=== PATIENT | male | born 1985 | race Caucasian/White ===

== ENCOUNTER 2017-10-07 16:54 | Emergency (ER) | payer BC ==
--- NOTE | 2017-10-07 17:34 | EDPHYS ---
Physician Documentation [facility] Name: Temo Chow Age: 32 yrs Sex: Male : 1985 Arrival Date: 10/07/2017 Time: 16:57 Bed 20 Private MD: ED Physician Enrique He HPI: 10/07 17:32 This 32 yrs old Male presents to ER via Ambulatory with complaints of Skin pm1 Problem. 17:32 The patient presents with an abscess of the left arm and left leg. Description: raised. pm1 Onset: The symptoms/episode began/occurred 3 day(s) ago. Possible cause(s): unknown. Associated signs and symptoms: Pertinent negatives: discharge, drainage, fever. Modifying factors: the symptoms are alleviated by nothing, the symptoms are aggravated by touching. Severity of symptoms: in the emergency department the symptoms are unchanged. The patient has not experienced similar symptoms in the past. The patient has not recently seen a physician. patient with recent fishing trips. Patient has psoriasis hx and a few lesions to extremities. Patient with tender areas of swelling that he believes might be abscesses. Historical: - Allergies: 17:04 Bactrim; aj - Home Meds: 17:04 escitalopram oxalate oral oral [Active]; Bupropion Oral [Active]; aj - PMHx: 17:04 Anxiety; aj - PSHx: 17:04 None; aj - Immunization history:: Adult Immunizations up to date. - Social history:: Smoking status: Patient uses tobacco products, smokes one-half pack cigarettes per day. - Ebola Screening: : Patient negative for fever greater than or equal to 101.5 degrees Fahrenheit, and additional compatible Ebola Virus Disease symptoms Patient denies exposure to infectious person Patient denies travel to an Ebola-affected area in the 21 days before illness onset No symptoms or risks identified at this time. ROS: 17:32 Constitutional: Negative for fever, chills, and weight loss, Eyes: Negative for injury, pm1 pain, redness, and discharge, ENT: Negative for injury, pain, and discharge, Neck: Negative for injury, pain, and swelling, Cardiovascular: Negative for chest pain, palpitations, and edema, Respiratory: Negative for shortness of breath, cough, wheezing, and pleuritic chest pain, Abdomen/GI: Negative for abdominal pain, nausea, vomiting, diarrhea, and constipation, Back: Negative for injury and pain, MS/Extremity: Negative for injury and deformity. 17:32 Skin: Positive for abscess, Negative for cellulitis. Exam: 17:32 Constitutional: This is a well developed, well nourished patient who is awake, alert, pm1 and in no acute distress. Head/Face: Normocephalic, atraumatic. Neck: Trachea midline, no thyromegaly or masses palpated, and no cervical lymphadenopathy. Supple, full range of motion without nuchal rigidity, or vertebral point tenderness. No Meningismus. Chest/axilla: Normal chest wall appearance and motion. Nontender with no deformity. No lesions are appreciated. Cardiovascular: Regular rate and rhythm with a normal S1 and S2. No gallops, murmurs, or rubs. Normal PMI, no JVD. No pulse deficits. Respiratory: Lungs have equal breath sounds bilaterally, clear to auscultation and percussion. No rales, rhonchi or wheezes noted. No increased work of breathing, no retractions or nasal flaring. Abdomen/GI: Soft, non-tender, with normal bowel sounds. No distension or tympany. No guarding or rebound. No evidence of tenderness throughout. Back: No spinal tenderness. No costovertebral tenderness. Full range of motion. 17:32 Skin: Appearance: normal except for affected area, abscess, that is small, approximately 1 cm(s), no drainage, fluctuance or surrounding cellulitis. Vital Signs: 17:06 BP 132 / 87; Pulse 87; Resp 20; Temp 98.0; Pulse Ox 99% on R/A; Weight 104.33 kg; aj Height 5 ft. 8 in. (172.72 cm) (R); 17:06 Body Mass Index 34.97 (104.33 kg, 172.72 cm) aj MDM: 17:06 Patient medically screened. pm1 17:32 Data reviewed: vital signs. Data interpreted: Pulse oximetry: on room air is 99 %. pm1 Interpretation: normal. Counseling: I had a detailed discussion with the patient and/or guardian regarding: the historical points, exam findings, and any diagnostic results supporting the discharge/admit diagnosis, the need for outpatient follow up, to return to the emergency department if symptoms worsen or persist or if there are any questions or concerns that arise at home. Administered Medications: 17:46 Drug: Tetanus-Diphtheria Toxoid Adult 0.5 ml {Tile Layer Drainage: [employer]. Exp: em 11/30/2018. Lot #: [id number]. } Route: IM; Site: right deltoid; 17:47 Follow up: Response: Medication administered at discharge. em Disposition: 18:11 Co-signature as Attending Physician, Enrique He MD I agree with the assessment and kdr plan of care. Disposition: 10/07/17 17:33 Discharged to Home. Impression: Cutaneous abscess of left lower limb, Cutaneous abscess of left upper limb. - Condition is Stable. - Discharge Instructions: Skin Abscess. - Prescriptions for Doxycycline Hyclate 100 mg Oral Tablet - take 1 tablet by ORAL route every 12 hours; 20 tablet. - Medication Reconciliation Form, Thank You Letter, Antibiotic Education form. - Follow up: Emergency Department; When: As needed; Reason: Worsening of condition. Follow up: Private Physician; When: 2 - 3 days; Reason: Recheck today's complaints, Continuance of care, Re-evaluation by your physician. - Problem is new. - Symptoms have improved. Signatures: Cece Cazares RN RN aj Rittger, Kevin, MD MD kdr Hiram Damon, SMALL STOCK FACER SMALL STOCK FACER em Steve Galdamez, SVP MONETIZATION SVP MONETIZATION pm1 Corrections: (The following items were deleted from the chart) 17:06 17:04 PMHx: eczema; jan montoya 17:50 17:33 10/07/2017 17:33 Discharged to Home. Impression: Cutaneous abscess of left lower em limb; Cutaneous abscess of left upper limb. Condition is Stable. Forms are Medication Reconciliation Form, Thank You Letter, Antibiotic Education, Prescription Opioid Use. Follow up: Emergency Department; When: As needed; Reason: Worsening of condition. Follow up: Private Physician; When: 2 - 3 days; Reason: Recheck today's complaints, Continuance of care, Re-evaluation by your physician. Problem is new. Symptoms have improved. pm1
--- NOTE | 2017-10-07 17:34 | ER ---
Nurse's Notes [facility] Name: Temo Chow Age: 32 yrs Sex: Male : 1985 Arrival Date: 10/07/2017 Time: 16:57 Bed 20 Private MD: Diagnosis: Cutaneous abscess of left lower limb;Cutaneous abscess of left upper limb Presentation: 10/07 17:02 Presenting complaint: Patient states: Reports possible staph infection to left calf. aj Also would like eczema to left foot looked at. Transition of care: patient was not received from another setting of care. Onset of symptoms was October 07, 2017. Risk Assessment: Do you want to hurt yourself or someone else? Patient reports no desire to harm self or others. Initial Sepsis Screen: Does the patient meet any 2 criteria? No. Patient's initial sepsis screen is negative. Does the patient have a suspected source of infection? No. Patient's initial sepsis screen is negative. Care prior to arrival: None. 17:02 Method Of Arrival: Ambulatory 17:02 Acuity: CAL 4 aj Triage Assessment: 17:04 General: Appears in no apparent distress. comfortable, Behavior is calm, cooperative, aj appropriate for age. Pain: Denies pain. Neuro: Level of Consciousness is awake, alert, obeys commands, Oriented to person, place, time, situation, Appropriate for age. Respiratory: Airway is patent Respiratory effort is even, unlabored, Respiratory pattern is regular, symmetrical. Derm: Skin is intact, is healthy with good turgor, Skin is pink, warm \T\ dry. normal, plaques noted to left foot and left elbow. Historical: - Allergies: 17:04 Bactrim; aj - Home Meds: 17:04 escitalopram oxalate oral oral [Active]; Bupropion Oral [Active]; aj - PMHx: 17:04 Anxiety; aj - PSHx: 17:04 None; aj - Immunization history:: Adult Immunizations up to date. - Social history:: Smoking status: Patient uses tobacco products, smokes one-half pack cigarettes per day. - Ebola Screening: : Patient negative for fever greater than or equal to 101.5 degrees Fahrenheit, and additional compatible Ebola Virus Disease symptoms Patient denies exposure to infectious person Patient denies travel to an Ebola-affected area in the 21 days before illness onset No symptoms or risks identified at this time. Screenin:44 Abuse screen: Denies threats or abuse. Nutritional screening: No deficits noted. em Tuberculosis screening: No symptoms or risk factors identified. Fall Risk None identified. Assessment: 17:27 General: Appears in no apparent distress. comfortable, Behavior is calm, cooperative. em Pain: Complains of pain in left arm, right foot, left dennison. Neuro: Level of Consciousness is awake, alert, obeys commands, Oriented to person, place, time, situation. Cardiovascular: Capillary refill < 3 seconds Patient's skin is warm and dry. Respiratory: Airway is patent Respiratory effort is even, unlabored, Respiratory pattern is regular, symmetrical. GI: Abdomen is round non-distended. : No signs and/or symptoms were reported regarding the genitourinary system. Derm: Rash noted that is on left arm, left dennison, right foot. Musculoskeletal: Range of motion: intact in all extremities. Vital Signs: 17:06 BP 132 / 87; Pulse 87; Resp 20; Temp 98.0; Pulse Ox 99% on R/A; Weight 104.33 kg; aj Height 5 ft. 8 in. (172.72 cm) (R); 17:06 Body Mass Index 34.97 (104.33 kg, 172.72 cm) aj ED Course: 16:57 Patient arrived in ED. as 17:03 Triage completed. aj 17:04 Arm band placed on left wrist. Patient placed in an exam room. aj 17:06 Steve Galdamez NP is PHCP. pm1 17:06 Enrique He MD is Attending Physician. pm1 17:44 Hiram Damon LVN is Primary Nurse. em 17:44 Patient has correct armband on for positive identification. Bed in low position. Call em light in reach. 17:44 No provider procedures requiring assistance completed. Patient did not have IV access em during this emergency room visit. Administered Medications: 17:46 Drug: Tetanus-Diphtheria Toxoid Adult 0.5 ml {Internal Medicine Veterinary Technician: [email or web address]. Exp: em 11/30/2018. Lot #: [id number]. } Route: IM; Site: right deltoid; 17:47 Follow up: Response: Medication administered at discharge. em Outcome: 17:33 Discharge ordered by . pm1 17:50 Discharged to home ambulatory. em 17:50 Condition: good 17:50 Discharge instructions given to patient, Instructed on discharge instructions, follow up and referral plans. medication usage, Demonstrated understanding of instructions, follow-up care, medications, Prescriptions given X 1. 17:50 Patient left the ED. em Signatures: Cece Cazares, RN RN Hiram Brock, FLASK FITTER FLASK FITTER em Martha Hernandez Patrick, INTERLOCKING AND SIGNAL MECHANIC INTERLOCKING AND SIGNAL MECHANIC pm1 Corrections: (The following items were deleted from the chart) 17: 17:04 PMHx: eczema; aj aj 17: 17:04 Derm: Skin is intact, is healthy with good turgor, eczema to left foot and left aj elbow Skin is pink, warm \T\ dry. normal, aj 17: 17:04 Derm: Skin is intact, is healthy with good turgor, eczema to left foot and left aj elbow Skin is pink, warm \T\ dry. normal, plaque noted to left foot and left elbow aj
[2017-10-07] MEDS ORDERED: TETANUS & DIPHTHERIA TOX,ADULT 0.5 ML VIAL ONE (17:41)
== END 2017-10-07 17:50 | disposition home or self-care (01) ==
LOC: ER 16:54
DX: L02.414 Cutaneous abscess of left upper limb (principal); Z23 Encounter for immunization; F41.9 Anxiety disorder, unspecified; F17.210 Nicotine dependence, cigarettes, uncomplicated; Z88.1 Allergy status to other antibiotic agents
CPT/HCPCS: 90714; 99283

== ENCOUNTER 2017-11-06 08:45 | Emergency (ER) | payer BC ==
[2017-11-06] MEDS ORDERED: MUPIROCIN 2% OINT 22GM TUBE TOP ONE (10:20)
[2017-11-06] MEDS ORDERED: HYDROCODONE/APAP 5/325 MG TAB ONE (10:20)
[2017-11-06] MEDS ORDERED: CLINDAMYCIN IV 150 MG/ML (4 mL) VIAL ONE (10:22)
--- NOTE | 2017-11-06 10:30 | RAD REPORT ---
EXAM DESCRIPTION: USEXTREMITY VENOUS UNI LTD11/06/2017 10:08 am CLINICAL HISTORY: left leg pain and swelling. COMPARISON: None. FINDINGS: Left common femoral, superficial femoral, popliteal and posterior tibial veins are compre ssible and demonstrate augmentation. Doppler demonstrates good flow. IMPRESSION: No evidence of deep venous thrombosis involving the left lower extremity.
--- NOTE | 2017-11-06 11:52 | ER ---
Nurse's Notes [facility] Name: Temo Chow Age: 32 yrs Sex: Male : 1985 Arrival Date: 11/06/2017 Time: 08:49 Bed 25 Private MD: None, None Diagnosis: Cellulitis of left lower limb Presentation: 11/06 09:35 Presenting complaint: Patient states: abscess to left calf X 2days, had previous iw abscess in similar location a month ago. Transition of care: patient was not received from another setting of care. Onset of symptoms was November 04, 2017. Risk Assessment: Do you want to hurt yourself or someone else? Patient reports no desire to harm self or others. Initial Sepsis Screen: Does the patient meet any 2 criteria? No. Patient's initial sepsis screen is negative. Does the patient have a suspected source of infection? No. Patient's initial sepsis screen is negative. Care prior to arrival: None. 09:35 Method Of Arrival: Ambulatory iw 09:35 Acuity: CAL 3 iw Historical: - Allergies: 09:23 Bactrim; sg - Home Meds: 09:23 Bupropion Oral [Active]; escitalopram oxalate Oral [Active]; sg - PMHx: 09:23 Anxiety; sg - PSHx: 09:23 None; sg - Immunization history:: Adult Immunizations not up to date. - Social history:: Smoking status: Patient uses tobacco products, smokes two packs cigarettes per day. - Ebola Screening: : Patient negative for fever greater than or equal to 101.5 degrees Fahrenheit, and additional compatible Ebola Virus Disease symptoms Patient denies exposure to infectious person Patient denies travel to an Ebola-affected area in the 21 days before illness onset No symptoms or risks identified at this time. Assessment: 09:35 General: Appears in no apparent distress. comfortable, well groomed, well developed, sg well nourished, Behavior is calm, cooperative, appropriate for age. Pain: Complains of pain in medial aspect of left calf Quality of pain is described as pressure, tender, throbbing. Neuro: No deficits noted. Cardiovascular: No deficits noted. Patient's skin is warm and dry. Chest pain is denied. Respiratory: Airway is patent Respiratory effort is even, unlabored, Respiratory pattern is regular, symmetrical. GI: No signs and/or symptoms were reported involving the gastrointestinal system. : No signs and/or symptoms were reported regarding the genitourinary system. EENT: No signs and/or symptoms were reported regarding the EENT system. Derm: Skin is pink, warm \T\ dry. Rash noted that is red, on medial aspect of left calf. Musculoskeletal: No signs and/or symptoms reported regarding the musculoskeletal system. 11:57 Reassessment: Patient is alert, oriented x 3, equal unlabored respirations, skin aa5 warm/dry/pink. Vital Signs: 09:22 BP 125 / 92; Pulse 83; Resp 17; Temp 97.8(O); Pulse Ox 99% on R/A; Weight 104.33 kg; iw Height 5 ft. 9 in. (175.26 cm); Pain 10/10; 09:22 Body Mass Index 33.96 (104.33 kg, 175.26 cm) iw ED Course: 08:49 Patient arrived in ED. mr 08:50 None, None is Private Physician. mr 08:57 [facility] Bashir [facility]-C [facility]. snw 08:57 Zackary Freitas MD is Attending Physician. snw 09:23 Pantera Mccoy, FLOR is Primary Nurse. sg 09:23 Arm band placed on. sg 09:36 Triage completed. iw 09:59 Patient taken to ultrasound. via wheelchair. lucina 10:08 US Extremity Venous Unilateral Ltd In Process Unspecified. EDMS 11:57 No provider procedures requiring assistance completed. Patient did not have IV access aa5 during this emergency room visit. Administered Medications: 10:19 Drug: [place] 5 mg-325 mg 1 tabs Route: PO; iw 11:28 Follow up: Response: No adverse reaction; Pain is decreased sg 10:19 Drug: Bactroban Ointment 2 % 1 application Route: Topical; Site: affected area; iw 10:35 Drug: Clindamycin 600 mg {Note: left ventrogluteal area.} Route: IM; Site: Other; sg 11:28 Follow up: Response: No adverse reaction sg Outcome: 11:51 Discharge ordered by . snw 11:57 Discharged to home ambulatory, with significant other. aa5 11:57 Condition: stable 11:57 Discharge instructions given to patient, significant other, Instructed on discharge instructions, follow up and referral plans. medication usage, Demonstrated understanding of instructions, follow-up care, medications, Prescriptions given X 3. 11:59 Patient left the ED. aa5 Signatures: Dispatcher [employer] EDPantera Berry RN RN sg Therrien, Shelly, NABEELC OUTSOLE ROUNDER-Angelow Deysi Argueta mr Janae Chen, Carmen Schafer RN, RN RN aa5 Sandeep Aguilar jd Corrections: (The following items were deleted from the chart) 09:25 09:23 Social history: Smoking status: Patient/guardian denies using tobacco, [facility] 09:36 09:22 BP 125 / 92; Pulse 83bpm; Resp 17bpm; Pulse Ox 99% RA; Pain 10/10; sg ar
--- NOTE | 2017-11-06 11:52 | EDPHYS ---
Physician Documentation [facility] Name: Temo Chow Age: 32 yrs Sex: Male : 1985 Arrival Date: 11/06/2017 Time: 08:49 Bed 25 Private MD: None, None ED Physician Zackary Freitas HPI: 11/06 09:53 This 32 yrs old Male presents to ER via Ambulatory with complaints of Abscess.snw 09:53 The patient presents with cellulitis of the medial aspect of left calf. Description: snw localized, well demarcated, erythematous, hot, tense. Onset: The symptoms/episode began/occurred suddenly, 2 day(s) ago. Associated signs and symptoms: Pertinent positives: erythema, swelling. Severity of symptoms: At their worst the symptoms were moderate, severe. The patient has experienced similar episodes in the past. The patient has not recently seen a physician. Historical: - Allergies: 09:23 Bactrim; sg - Home Meds: 09:23 Bupropion Oral [Active]; escitalopram oxalate Oral [Active]; sg - PMHx: 09:23 Anxiety; sg - PSHx: 09:23 None; sg - Immunization history:: Adult Immunizations not up to date. - Social history:: Smoking status: Patient uses tobacco products, smokes two packs cigarettes per day. - Ebola Screening: : Patient negative for fever greater than or equal to 101.5 degrees Fahrenheit, and additional compatible Ebola Virus Disease symptoms Patient denies exposure to infectious person Patient denies travel to an Ebola-affected area in the 21 days before illness onset No symptoms or risks identified at this time. ROS: 09:52 Constitutional: Negative for fever, chills, and weight loss, Eyes: Negative for injury, snw pain, redness, and discharge, ENT: Negative for injury, pain, and discharge, Neck: Negative for injury, pain, and swelling, Cardiovascular: Negative for chest pain, palpitations, and edema, Respiratory: Negative for shortness of breath, cough, wheezing, and pleuritic chest pain, Abdomen/GI: Negative for abdominal pain, nausea, vomiting, diarrhea, and constipation, Back: Negative for injury and pain, : Negative for injury, bleeding, discharge, and swelling, MS/Extremity: Negative for injury and deformity, Skin: Negative for injury, rash, and discoloration, + red, hot, irritated skin to inner calf with tenderness Neuro: Negative for headache, weakness, numbness, tingling, and seizure, Psych: Negative for depression, anxiety, suicide ideation, homicidal ideation, and hallucinations. Exam: 09:47 Constitutional: This is a well developed, well nourished patient who is awake, alert, snw and in no acute distress. Head/Face: Normocephalic, atraumatic. Eyes: Pupils equal round and reactive to light, extra-ocular motions intact. Lids and lashes normal. Conjunctiva and sclera are non-icteric and not injected. Cornea within normal limits. Periorbital areas with no swelling, redness, or edema. ENT: Nares patent. No nasal discharge, no septal abnormalities noted. Tympanic membranes are normal and external auditory canals are clear. Oropharynx with no redness, swelling, or masses, exudates, or evidence of obstruction, uvula midline. Mucous membranes moist. Neck: Trachea midline, no thyromegaly or masses palpated, and no cervical lymphadenopathy. Supple, full range of motion without nuchal rigidity, or vertebral point tenderness. No Meningismus. Chest/axilla: Normal chest wall appearance and motion. Nontender with no deformity. No lesions are appreciated. Cardiovascular: Regular rate and rhythm with a normal S1 and S2. No gallops, murmurs, or rubs. Normal PMI, no JVD. No pulse deficits. Respiratory: Lungs have equal breath sounds bilaterally, clear to auscultation and percussion. No rales, rhonchi or wheezes noted. No increased work of breathing, no retractions or nasal flaring. Abdomen/GI: Soft, non-tender, with normal bowel sounds. No distension or tympany. No guarding or rebound. No evidence of tenderness throughout. Back: No spinal tenderness. No costovertebral tenderness. Full range of motion. MS/ Extremity: Pulses equal, no cyanosis. Neurovascular intact. Full, normal range of motion. Neuro: Awake and alert, GCS 15, oriented to person, place, time, and situation. Cranial nerves II-XII grossly intact. Motor strength 5/5 in all extremities. Sensory grossly intact. Cerebellar exam normal. Normal gait. Psych: Awake, alert, with orientation to person, place and time. Behavior, mood, and affect are within normal limits. 09:47 Skin: Appearance: normal except for affected area, cellulitis, that is moderate, well demarcated, on the medial aspect of left calf. Vital Signs: 09:22 BP 125 / 92; Pulse 83; Resp 17; Temp 97.8(O); Pulse Ox 99% on R/A; Weight 104.33 kg; iw Height 5 ft. 9 in. (175.26 cm); Pain 10; 09:22 Body Mass Index 33.96 (104.33 kg, 175.26 cm) iw MDM: 09:20 Patient medically screened. lyssa 11:53 Data reviewed: vital signs, nurses notes. Data interpreted: Pulse oximetry: on room air snw is 99 %. Interpretation: normal. Counseling: I had a detailed discussion with the patient and/or guardian regarding: the historical points, exam findings, and any diagnostic results supporting the discharge/admit diagnosis, the presence of at least one elevated blood pressure reading (>120/80) during this emergency department visit, radiology results, the need for outpatient follow up, to return to the emergency department if symptoms worsen or persist or if there are any questions or concerns that arise at home. Special discussion: I have referred the patient to see his PCP for further evaluation of high blood pressure. I discussed in detail with the patient the higher chance of wound infection based on his presenting history. Based on the history and exam findings, there is no indication for further emergent testing or inpatient evaluation. I discussed with the patient/guardian the need to see the clean energy policy analyst for further evaluation of the symptoms. I discussed with the patient/guardian the need to see the primary care provider for further evaluation of the symptoms. 11/06 09:42 Order name: US Extremity Venous Unilateral Ltd; Complete Time: 10:35 snw Administered Medications: 10:19 Drug: [place] 5 mg-325 mg 1 tabs Route: PO; iw 11:28 Follow up: Response: No adverse reaction; Pain is decreased sg 10:19 Drug: Bactroban Ointment 2 % 1 application Route: Topical; Site: affected area; iw 10:35 Drug: Clindamycin 600 mg {Note: left ventrogluteal area.} Route: IM; Site: Other; sg 11:28 Follow up: Response: No adverse reaction sg Disposition: 12:07 Co-signature as Attending Physician, Zackary Freitas MD I agree with the assessment and [facility] plan of care. Disposition: 11/06/17 11:51 Discharged to Home. Impression: Cellulitis of left lower limb. - Condition is Stable. - Discharge Instructions: Cellulitis, Adult, Heat Therapy. - Prescriptions for Bactroban 2 % Topical Ointment - apply 1 application by INTRANASAL route every 12 hours for 5 days; 15 gram. Clindamycin HCl 300 mg Oral Capsule - take 1 capsule by ORAL route every 6 hours for 10 days; 40 capsule. Diclofenac Sodium 75 mg Oral Tablet Sustained Release - take 1 tablet by ORAL route 2 times per day; 30 tablet. - Work release form, Medication Reconciliation Form, Thank You Letter, Antibiotic Education, Prescription Opioid Use form. - Follow up: Emergency Department; When: As needed; Reason: Worsening of condition. Follow up: Private Physician; When: 2 - 3 days; Reason: Recheck today's complaints, Continuance of care, Re-evaluation by your physician. Signatures: Dispatcher [employer] EDMS Pantera Mccoy RN RN sg Anderson, Corey, MD MD cha Therrien, Shelly, CHIROPRACTOR SOLE PRACTITIONER-C CHIROPRACTOR SOLE PRACTITIONER-Csnw Janae Chen, FLOR RN Carmen Nicholson RN RN aa5 Corrections: (The following items were deleted from the chart) 09:25 09:23 Social history: Smoking status: Patient/guardian denies using tobacco, [facility] 11:59 11:51 11/06/2017 11:51 Discharged to Home. Impression: Cellulitis of left lower limb. aa5 Condition is Stable. Forms are Medication Reconciliation Form, Thank You Letter, Antibiotic Education, Prescription Opioid Use. Follow up: Emergency Department; When: As needed; Reason: Worsening of condition. Follow up: Private Physician; When: 2 - 3 days; Reason: Recheck today's complaints, Continuance of care, Re-evaluation by your physician. snw
== END 2017-11-06 11:59 | disposition home or self-care (01) ==
LOC: ER 08:45
DX: L03.116 Cellulitis of left lower limb (principal); F41.9 Anxiety disorder, unspecified; F17.210 Nicotine dependence, cigarettes, uncomplicated; Z88.1 Allergy status to other antibiotic agents
CPT/HCPCS: 93971; 96372; 99284; S0077

== ENCOUNTER 2017-11-10 09:05 | Inpatient (IN) | payer BC ==
[2017-11-10] MEDS ORDERED: VANCOMYCIN 1 GM/250 ML BAG ONE (10:31)
[2017-11-10 10:32] LABS: Potassium 3.5 mmol/L (3.5-5.1)
[2017-11-10 10:33] LABS: Absolute Lymphocytes (CBC) 1.5 K/uL (0.7-4.9); Absolute Neutrophil 8.9 K/uL (1.8-8.0); Basophils % 0.7 % (0-1.3); Eosinophils % 2.2 % (0-4.4); Hematocrit 43.1 % (39.6-49.0); Lymphocytes % 12.6 % (15.3-44.8); MCH 29.1 pg (27.0-35.0); MCV 85.8 fL (80-100); MPV 9.4 fL (7.6-11.3); Monocytes % 8.4 % (3.3-12.3); RBC Red Blood Cell Count 5.03 M/uL (4.33-5.43)
--- NOTE | 2017-11-10 10:43 | EDPHYS ---
Physician Documentation [facility] Name: Temo Chow Age: 32 yrs Sex: Male : 1985 Arrival Date: 11/10/2017 Time: 09:07 Bed 13 Private MD: None, None ED Physician Zackary Freitas HPI: 11/10 10:37 This 32 yrs old Male presents to ER via Ambulatory with complaints of Abscess.kb 10:37 The patient presents with cellulitis of the left dennison. Description: erythematous, hot, kb swollen. Onset: The symptoms/episode began/occurred 1 month(s) ago. Possible cause(s): unknown. Associated signs and symptoms: Pertinent positives: erythema, swelling, Pertinent negatives: discharge, drainage, foreign body sensation, fever, headache, nausea, shortness of breath, vomiting. Modifying factors: the symptoms are alleviated by nothing, the symptoms are aggravated by walking, pressure. Severity of symptoms: At their worst the symptoms were moderate, in the emergency department the symptoms are unchanged. The patient has not experienced similar symptoms in the past. The patient has been recently seen at the [facility] Emergency Department, last week, last month, for similar complaints was given a prescription for antibiotics. Pt has been treated with three rounds of clindamycin for left lower extremity cellulitis. States the swelling got worse yesterday. Pt is currently on clindamycin. Historical: - Allergies: 09:19 Bactrim; iw - PMHx: 09:19 Anxiety; iw - PSHx: 09:19 None; iw - Immunization history:: Adult Immunizations up to date. - Social history:: Smoking status: Patient/guardian denies using tobacco. - Ebola Screening: : Patient denies exposure to infectious person Patient denies travel to an Ebola-affected area in the 21 days before illness onset. ROS: 10:37 Constitutional: Negative for fever, chills, and weight loss, Cardiovascular: Negative kb for chest pain, palpitations, and edema, Respiratory: Negative for shortness of breath, cough, wheezing, and pleuritic chest pain, Abdomen/GI: Negative for abdominal pain, nausea, vomiting, diarrhea, and constipation, Back: Negative for injury and pain, Neuro: Negative for headache, weakness, numbness, tingling, and seizure. 10:37 Skin: Positive for cellulitis, erythema, swelling, Negative for abrasions, avulsion, burn, diaphoresis, discoloration, ecchymosis, hematoma, jaundice, laceration(s), lesions, pallor, puncture, rash, ulceration. Exam: 10:37 Constitutional: This is a well developed, well nourished patient who is awake, alert, kb and in no acute distress. Head/Face: Normocephalic, atraumatic. Chest/axilla: Normal chest wall appearance and motion. Nontender with no deformity. No lesions are appreciated. Cardiovascular: Regular rate and rhythm with a normal S1 and S2. No gallops, murmurs, or rubs. Normal PMI, no JVD. No pulse deficits. Respiratory: Lungs have equal breath sounds bilaterally, clear to auscultation and percussion. No rales, rhonchi or wheezes noted. No increased work of breathing, no retractions or nasal flaring. Abdomen/GI: Soft, non-tender, with normal bowel sounds. No distension or tympany. No guarding or rebound. No evidence of tenderness throughout. MS/ Extremity: Pulses equal, no cyanosis. Neurovascular intact. Full, normal range of motion. Neuro: Awake and alert, GCS 15, oriented to person, place, time, and situation. Cranial nerves II-XII grossly intact. Motor strength 5/5 in all extremities. Sensory grossly intact. Cerebellar exam normal. Normal gait. 10:37 Skin: cellulitis, that is moderate, on the left dennison. Vital Signs: 09:19 BP 138 / 92; Pulse 85; Resp 16; Pulse Ox 98% on R/A; iw 10:07 Temp 98.4; iw 12:07 BP 132 / 89; Pulse 84; Resp 16; Temp 98.2; Pulse Ox 100% on R/A; Pain 8/10; iw 12:57 BP 134 / 80; Pulse 82; Resp 16; Pulse Ox 99% on R/A; sg MDM: 09:27 Patient medically screened. kb 10:37 Data reviewed: vital signs, nurses notes. Data interpreted: Pulse oximetry: on room air kb is 98 %. Interpretation: normal. Counseling: I had a detailed discussion with the patient and/or guardian regarding: the historical points, exam findings, and any diagnostic results supporting the discharge/admit diagnosis, lab results, the need for further work-up and treatment in the hospital. Physician consultation: Carolina Manzo MD was contacted at 10:41, regarding admission, to the medical/surgical unit. and will see patient in ED, shortly. 11/10 09:42 Order name: CBC with Diff; Complete Time: 10:36 kb 11/10 09:42 Order name: Basic Metabolic Panel; Complete Time: 10:34 kb 11/10 09:42 Order name: Blood Culture Adult (2) kb 11/10 09:42 Order name: IV Start; Complete Time: 10:01 kb Administered Medications: 10:32 Drug: vancoMYCIN 1 grams Route: IVPB; Infused Over: 2 hrs; Site: left antecubital; iw 12:49 Follow up: Response: No adverse reaction; IV Status: Completed infusion sg 11:35 Drug: [place] (7.5 mg-325 mg) 1 tabs Route: PO; iw 12:10 Follow up: Response: No adverse reaction; Pain is decreased iw 12:48 Drug: Zosyn 3.375 grams Route: IVPB; Infused Over: 60 mins; Site: right antecubital; sg 13:20 Follow up: IV Status: Completed infusion iw Disposition: 11/10/17 10:42 Hospitalization ordered by Carolina Manzo for Inpatient Admission. Preliminary diagnosis is Cellulitis of left lower limb - failed outpatient treatment. - Bed requested for Telemetry/MedSurg (Inpatient). - Status is Inpatient Admission. sg - Condition is Stable. - Problem is an ongoing problem. - Symptoms are unchanged. UTI on Admission? No Addendum: 11/14/2017 07:38 Co-signature as Attending Physician, Carolina Manzo MD I agree with the assessment and c martino plan of care. Signatures: Dispatcher [employer] EDAL Ellen Carranza, NIDIA-C POLICE DETENTION ATTENDANT-Pantera Cantor RN RN sg Anderson, Corey, MD MD cha Williams, Irene, RN RN iw Deanne Ledezma RN RN ss Shanika Joyner RN RN df Corrections: (The following items were deleted from the chart) 11/10 12:38 10:42 Hospitalization Ordered by Carolina Manzo MD for Inpatient Admission. Preliminary df diagnosis is Cellulitis of left lower limb - failed outpatient treatment. Bed requested for Telemetry/MedSurg (Inpatient). Status is Inpatient Admission. Condition is Stable. Problem is an ongoing problem. Symptoms are unchanged. UTI on Admission? No. kb 13:08 12:38 11/10/2017 10:42 Hospitalization Ordered by Carolina Manzo MD for Inpatient sg Admission. Preliminary diagnosis is Cellulitis of left lower limb - failed outpatient treatment. Bed requested for Telemetry/MedSurg (Inpatient). Status is Inpatient Admission. Condition is Stable. Problem is an ongoing problem. Symptoms are unchanged. UTI on Admission? No. df
--- NOTE | 2017-11-10 10:43 | ER ---
Nurse's Notes [facility] Name: Temo Chow Age: 32 yrs Sex: Male : 1985 Arrival Date: 11/10/2017 Time: 09:07 Bed 13 Private MD: None, None Diagnosis: Cellulitis of left lower limb-failed outpatient treatment Presentation: 11/10 09:18 Presenting complaint: Patient states: diagnosed with MRSA/ cellulitis recently in ER, ss antibiotics are not working. Pt has not followed up with PCP as he does not have one. Transition of care: patient was not received from another setting of care. Onset of symptoms is unknown. Risk Assessment: Do you want to hurt yourself or someone else? Patient reports no desire to harm self or others. Initial Sepsis Screen: Does the patient meet any 2 criteria? Yes Does the patient have a suspected source of infection? Yes: Skin breakdown/wound. Care prior to arrival: None. 09:18 Method Of Arrival: Ambulatory ss 09:18 Acuity: CAL 3 ss Historical: - Allergies: 09:19 Bactrim; iw - PMHx: 09:19 Anxiety; iw - PSHx: 09:19 None; iw - Immunization history:: Adult Immunizations up to date. - Social history:: Smoking status: Patient/guardian denies using tobacco. - Ebola Screening: : Patient denies exposure to infectious person Patient denies travel to an Ebola-affected area in the 21 days before illness onset. Screenin:05 Abuse screen: Denies threats or abuse. Denies injuries from another. Nutritional iw screening: No deficits noted. Tuberculosis screening: No symptoms or risk factors identified. Fall Risk IV access (20 points). Assessment: 10:00 General: Appears in no apparent distress. Behavior is calm, cooperative. Pain: iw Complains of pain in medial aspect of left calf. Neuro: Level of Consciousness is awake, alert, obeys commands, Oriented to person, place, time, situation, Moves all extremities. Full function. Cardiovascular: Patient's skin is warm and dry. Respiratory: Respiratory effort is even, unlabored, Respiratory pattern is regular, symmetrical. Derm: redness and swelling to left dennison, draining abscess noted to left calf. Musculoskeletal: Range of motion: intact in all extremities. 11:04 Reassessment: Patient appears in no apparent distress at this time. Patient and/or iw family updated on plan of care and expected duration. Pain level reassessed. Patient is alert, oriented x 3, equal unlabored respirations, skin warm/dry/pink. 12:05 Reassessment: Patient appears in no apparent distress at this time. Patient and/or iw family updated on plan of care and expected duration. Pain level reassessed. Patient is alert, oriented x 3, equal unlabored respirations, skin warm/dry/pink. pt has been medicated for pain, awaiting room assignment. Vital Signs: 09:19 BP 138 / 92; Pulse 85; Resp 16; Pulse Ox 98% on R/A; iw 10:07 Temp 98.4; iw 12:07 BP 132 / 89; Pulse 84; Resp 16; Temp 98.2; Pulse Ox 100% on R/A; Pain 8/10; iw 12:57 BP 134 / 80; Pulse 82; Resp 16; Pulse Ox 99% on R/A; sg ED Course: 09:07 Patient arrived in ED. mr 09:07 None, None is Private Physician. mr 09:18 Janae Chen, RN is Primary Nurse. iw 09:18 Arm band placed on right wrist. ss 09:21 Triage completed. ss 09:27 Ellen Carranza FNP-C is PHCP. kb 09:27 Zackary Freitas MD is Attending Physician. kb 10:00 Initial lab(s) drawn, by me, sent to lab. Inserted saline lock: 20 gauge in left iw antecubital area, using aseptic technique. 10:42 Carolina Manzo MD is Hospitalizing Provider. kb 12:07 Patient has correct armband on for positive identification. Placed in gown. Bed in low iw position. Pulse ox on. NIBP on. 12:27 Primary Nurse role handed off by Janae Chen, FLOR sg 12:27 Pantera Mccoy, FLOR is Primary Nurse. sg 12:49 No provider procedures requiring assistance completed. Patient admitted, IV remains in sg place. intact, No redness/swelling at site. Administered Medications: 10:32 Drug: vancoMYCIN 1 grams Route: IVPB; Infused Over: 2 hrs; Site: left antecubital; iw 12:49 Follow up: Response: No adverse reaction; IV Status: Completed infusion sg 11:35 Drug: [place] (7.5 mg-325 mg) 1 tabs Route: PO; iw 12:10 Follow up: Response: No adverse reaction; Pain is decreased iw 12:48 Drug: Zosyn 3.375 grams Route: IVPB; Infused Over: 60 mins; Site: right antecubital; sg 13:20 Follow up: IV Status: Completed infusion iw Outcome: 10:42 Decision to Hospitalize by Provider. kb 12:56 Admitted to Med/surg accompanied by tech, family with patient, via wheelchair, room sg 206, with chart, Report called to Rama RAY 12:56 Condition: stable 12:56 Instructed on follow up and referral plans. the need for admit, safety practices, Demonstrated understanding of instructions. 13:08 Patient left the ED. sg Signatures: Ellen Carranza, AERODYNAMICS TEACHER-C AERODYNAMICS TEACHER-CkPantera Pennington, RN RN Deysi Argueta mr Janae Chen, RN FLOR Deanne Ledezma RN RN ss
[2017-11-10] MEDS ORDERED: ONDANSETRON 4 MG/2 ML VIAL IV PRN (11:01)
[2017-11-10] MEDS ORDERED: ACETAMINOPHEN 500 MG TAB PO PRN (11:01)
[2017-11-10] MEDS ORDERED: HYDROCODONE/APAP 7.5/325 MG TAB PO PRN (11:01)
[2017-11-10] MEDS ORDERED: PIPER/TAZO/NS 3.375gm 3.375 GM/100 ML BAG IVPB SCH (11:15)
[2017-11-10] MEDS ORDERED: HYDROCODONE/APAP 7.5/325 MG TAB ONE (11:37)
[2017-11-10] MEDS ORDERED: PIPER/TAZO/NS 3.375gm 3.375 GM/100 ML BAG ONE (12:35)
[2017-11-10] MEDS: NICOTINE 14 MG/PAT TD SCH (16:56)
[2017-11-10] MEDS ORDERED: ENOXAPARIN 40 MG/0.4 ML SQ SCH (17:00)
[2017-11-10] MEDS: PIPER/TAZO/NS 3.375gm 3.375 GM/100 ML BAG IVPB SCH (17:01)
[2017-11-10] MEDS: VANCOMYCIN 1.75 GM in NA CHLORIDE 0.9% 500 ML IVPB SCH (20:17)
[2017-11-10] MEDS ORDERED: VANCOMYCIN 1GM/D5W 200 ML IV SCH (21:00)
[2017-11-11] MEDS: PIPER/TAZO/NS 3.375gm 3.375 GM/100 ML BAG IVPB SCH ×2 (00:06→09:00)
[2017-11-11 02:17] LABS: Absolute Monocytes 0.7 K/uL (0.1-1.3); Absolute Neutrophil 5.2 K/uL (1.8-8.0); Basophils % 0.8 % (0-1.3); Eosinophils % 3.5 % (0-4.4); Hematocrit 41.3 % (39.6-49.0); Lymphocytes % 23.7 % (15.3-44.8); MCH 29.4 pg (27.0-35.0); MCV 85.9 fL (80-100); Monocytes % 8.6 % (3.3-12.3); RBC Red Blood Cell Count 4.81 M/uL (4.33-5.43)
--- NOTE | 2017-11-11 02:26 | HP ---
Date of Admission: 11/10/2017 Chief Complaint: Left lower extremity swelling and redness. History Of Present Illness: The patient is a 32-year-old male with no significant past medical histo ry other than for mood and anxiety. The patient states that he came into the ER 1 month ago, had christina lulitis of his lower extremity, and was given clindamycin. The patient then subsequently developed a nother boil and furuncle, which developed into cellulitis on the opposite side on the medial aspect o f the left lower extremity. The patient denies any trauma or any insect bite. The patient's symptom s are constant, moderate, progressively worsening. Upon arrival, his vital signs were stable. He wa s afebrile. His workup revealed a white count of 11.7 with left shift. The patient was then started on IV antibiotics and referred for admission. The patient was seen in the ER. He was awake, alert, oriented x3, no acute distress. Past Medical History: Generalized anxiety disorder, allergies to Bactrim. Past Surgical History: None. Medications: List reviewed. Social History: The patient smokes half a pack per day. Denies any alcohol use or illicit drug use. The patient works as a security guard supervisor. . Family History: Father has very bad allergies and asthma. Review of Systems: An 11-point system reviewed, negative except as per HPI. Physical Examination: Vital Signs: Temperature 98.4, heart rate 85, blood pressure 138/92, respirations 16, O2 98% on room air. General: Awake, alert, oriented x3. Some mild distress. Obese male. BMI 34.8. HEENT: Normocephalic, atraumatic. PERRLA. EOMI. Moist mucous membranes. Oropharynx is clear. No rmal dentition. Conjunctivae anicteric. Neck: Supple. No JVD. Trachea midline. CV: S1, S2. No murmurs. Regular rate and rhythm. Peripheral pulses present. Respiratory: Moving air well bilaterally. No wheezing or stridor. No use of accessory muscles. Gastrointestinal: Abdomen is soft, nontender, nondistended. Positive bowel sounds. No guarding or rigidity. Extremities: No clubbing, cyanosis. Mild left lower extremity edema. No calf tenderness. Neuro: Cranial nerves 2 through 12 intact grossly. No focal neurological deficit. Speech is normal . Strength is 5/5 bilateral upper and lower extremities. Sensation intact to light touch. Skin: Erythema of the left medial lower extremity with furuncle, but no drainage. Mild tenderness t o palpation. Warm to touch. Psych: Mood is okay. Affect is full. Insight and judgment are good. Laboratory Data: WBC 11.7, H and H 14.6/43.1, platelets 289, neutrophils 76%. Sodium 139, potassium 3.5, chloride 102, CO2 29, BUN 8, creatinine 1, glucose 90, calcium 8.9. Assessment And Plan: A 32-year-old male with: 1.Left lower extremity cellulitis, failed outpatient treatment with clindamycin. We will continue w ith IV antibiotics, vanc and Zosyn to cover for MRSA and Pseudomonas. We will obtain blood cultures and monitor for signs of sepsis and fever. Monitor white blood cell count. We will initiate IV flui d resuscitation. Elevate the lower extremity and ice as needed. 2.Generalized anxiety disorder. We will resume home medications. 3.Gastrointestinal and deep venous thrombosis prophylaxis with PPI and Lovenox. Plan: Admit the patient to Med-Surg, place as inpatient. /LUCA Voice ID: [id number]
[2017-11-11 02:50] LABS: Potassium 3.2 mmol/L (3.5-5.1)
[2017-11-11] MEDS: VANCOMYCIN 1.75 GM in NA CHLORIDE 0.9% 500 ML IVPB SCH (09:00)
[2017-11-11] MEDS: NICOTINE 14 MG/PAT TD SCH (10:00)
--- NOTE | 2017-11-11 10:38 | P.DS ---
Admission Date: 11/10/17 Discharge Date: 11/11/17 Disposition: ROUTINE DISCHARGE Discharge Condition: GOOD Brief History of Present Illness: pt is 32 yrs of age aw cellulitis of the left leg. Failed OP tx with clindamicin. Doign well. Painand redness have decreased O/E looks well. Chest cleat. REdness of the left calf has decreased. LAbs normal Cultures neg. D/C home on Doxy and Levaquin Hospital Course: Pt tx with Zosyn and Vanc. No problems. D/C home One st of BC neg Vital Signs/Physical Exam: Temp Pulse Resp BP Pulse Ox 98.0 F 78 18 121/82 99 11/11/17 04:00 11/11/17 04:00 11/11/17 04:00 11/11/17 04:00 11/11/17 04:00 Laboratory Data at Discharge: WBC 8.2 K/uL (4.3-10.9) D 11/11/17 02:00 Hgb 14.1 g/dL (13.6-17.9) 11/11/17 02:00 Hct 41.3 % (39.6-49.0) 11/11/17 02:00 Plt Count 249 K/uL (152-406) 11/11/17 02:00 Sodium 140 mmol/L (136-145) 11/11/17 02:00 Potassium 3.2 mmol/L (3.5-5.1) L 11/11/17 02:00 BUN 8 mg/dL (7-18) 11/11/17 02:00 Creatinine 1.00 mg/dL (0.55-1.3) 11/11/17 02:00 Glucose 109 mg/dL (74-106) H 11/11/17 02:00 Home Medications: Bupropion *Xl* [Wellbutrin XL*] 2 tab PO DAILY 11/10/17 Escitalopram [Lexapro*] 0.5 tab PO DAILY 11/10/17 Doxycycline Hyclate 100 mg PO BID 7 Days #14 tablet 11/11/17 Levofloxacin [Levaquin] 750 mg PO DAILY 7 Days #7 tablet 11/11/17 New Medications: Doxycycline Hyclate 100 mg PO BID 7 Days #14 tablet Levofloxacin [Levaquin] 750 mg PO DAILY 7 Days #7 tablet Patient Discharge Instructions: F/u [facility] primary care in 1 wk Diet: Regular Activity: Ad ray
== END 2017-11-11 13:05 | disposition home or self-care (01) | DRG 603 ==
LOC: ER 09:05 → ERHOLD 10:44 → 2ND 12:57
PROVIDERS: ADMIT Family Medicine; ATTEND Internal Medicine Sleep Medicine
DX: L03.116 Cellulitis of left lower limb (principal); F41.1 Generalized anxiety disorder; F17.200 Nicotine dependence, unspecified, uncomplicated; Z88.1 Allergy status to other antibiotic agents; Z86.14 Personal history of Methicillin resistant Staphylococcus aureus infection
CPT/HCPCS: 36415; 80048; 80202; 85025; 87040; 99285; J1650; J2543; J3370

== ENCOUNTER 2018-05-12 14:23 | Emergency (ER) | payer BC ==
[2018-05-12] MEDS ORDERED: LIDOCAINE 1% MPF 5 ML VIAL ONE (15:30)
[2018-05-12] MEDS ORDERED: BUPIVACAINE 0.5% PF 10 ML VIAL ONE (15:31)
--- NOTE | 2018-05-12 16:16 | ER ---
Nurse's Notes [facility] Name: Temo Chow Age: 32 yrs Sex: Male : 1985 Arrival Date: 05/12/2018 Time: 14:26 Bed 28 Private MD: None, None Diagnosis: Cellulitis of head [any part, except face] Presentation: 05/12 14:40 Presenting complaint: Patient states: abscess to back of head that he noticed 2-3 days aa5 ago. Transition of care: patient was not received from another setting of care. Onset of symptoms was May 2018. Risk Assessment: Do you want to hurt yourself or someone else? Patient reports no desire to harm self or others. Initial Sepsis Screen: Does the patient meet any 2 criteria? No. Patient's initial sepsis screen is negative. Does the patient have a suspected source of infection? No. Patient's initial sepsis screen is negative. Care prior to arrival: None. 14:40 Method Of Arrival: Ambulatory aa5 14:40 Acuity: CAL 4 aa5 Historical: - Allergies: 14:41 Bactrim; aa5 - Home Meds: 16:33 Bupropion Oral [Active]; escitalopram oxalate Oral [Active]; mg2 - PMHx: 14:41 Anxiety; aa5 - PSHx: 14:41 None; aa5 - Immunization history:: Flu vaccine is not up to date. - Social history:: Smoking status: Patient uses tobacco products, smokes one-half pack cigarettes per day. - Ebola Screening: : No symptoms or risks identified at this time. Screenin:12 Abuse screen: Denies threats or abuse. Denies injuries from another. Nutritional mg2 screening: No deficits noted. Tuberculosis screening: No symptoms or risk factors identified. Fall Risk None identified. Assessment: 15:10 General: Appears in no apparent distress. comfortable, Behavior is calm, cooperative. mg2 Pain: Complains of pain in occiput Pain does not radiate. Pain currently is 8 out of 10 on a pain scale. Quality of pain is described as aching, Pain began gradually, 2-3 days ago. Is intermittent. Neuro: Level of Consciousness is awake, alert, obeys commands, Oriented to person, place, time, situation. Cardiovascular: Capillary refill < 3 seconds Patient's skin is warm and dry. Respiratory: Airway is patent Respiratory effort is even, unlabored, Respiratory pattern is regular, symmetrical. GI: No signs and/or symptoms were reported involving the gastrointestinal system. : No signs and/or symptoms were reported regarding the genitourinary system. EENT: No signs and/or symptoms were reported regarding the EENT system. Derm: Skin is intact, is healthy with good turgor, Skin is pink, warm \T\ dry. normal, Abscess located on occiput is quarter sized, has no drainage. Musculoskeletal: Circulation, motion, and sensation intact. Capillary refill < 3 seconds. Vital Signs: 14:41 BP 134 / 96; Pulse 88; Resp 16 S; Temp 97.3(TE); Pulse Ox 99% on R/A; Weight 104.33 kg aa5 (R); Height 5 ft. 8 in. (172.72 cm) (R); Pain 7/10; 15:12 BP 129 / 91; Pulse 89; Resp 18; Pulse Ox 100% on R/A; Pain 8/10; mg2 16:32 BP 120 / 78; Pulse 80; Resp 18; Pulse Ox 100% on R/A; Pain 0/10; mg2 14:41 Body Mass Index 34.97 (104.33 kg, 172.72 cm) aa5 ED Course: 14:26 Patient arrived in ED. mr 14:26 None, None is Private Physician. mr 14:40 Arm band placed on. aa5 14:41 Triage completed. aa5 14:53 Adam Craig, FLOR is Primary Nurse. mg2 15:10 Zackary Bowman PA is PHCP. cp 15:10 Nithya Simons MD is Attending Physician. cp 15:12 Patient did not have IV access during this emergency room visit. mg2 16:30 Patient has correct armband on for positive identification. mg2 16:31 Assist provider with I \T\ D: of an abscess on occiput Set up I\T\D tray. Performed by mg Duyen DENNIS Wound packed. 4X4s, Dressing with 4X4s, tape Patient tolerated well. Administered Medications: 16:20 Drug: Lidocaine (1 %) 5 mg Route: Infiltration; mg2 16:30 Follow up: Response: No adverse reaction; Pain is decreased mg2 16:20 Drug: Marcaine (0.5 %) 5 ml Volume: 10 ml; Route: Infiltration; mg2 16:30 Follow up: Response: No adverse reaction; Pain is decreased mg2 Outcome: 16:16 Discharge ordered by MD. cp 16:32 Discharged to home ambulatory, with family. mg2 16:32 Condition: stable 16:32 Discharge instructions given to patient, family, Instructed on discharge instructions, follow up and referral plans. medication usage, Demonstrated understanding of instructions, follow-up care, medications, wound care, Prescriptions given X 1. 16:34 Patient left the ED. mg2 Signatures: Chela Argueta Audri, RN RN aa5 Zackary Bowman, SONNY PA Adam Gentile, RN RN mg2
--- NOTE | 2018-05-12 16:16 | EDPHYS ---
Physician Documentation [facility] Name: Temo Chow Age: 32 yrs Sex: Male : 1985 Arrival Date: 05/12/2018 Time: 14:26 Bed 28 Private MD: None, None ED Physician Nithya Simons HPI: 05/12 15:13 This 32 yrs old Male presents to ER via Ambulatory with complaints of Bump on cp head. 15:13 the patient presents with a swollen area of the right base of the skull and left base cp of the skull. 15:13 Description: erythematous, swollen. Onset: The symptoms/episode began/occurred 3 day(s) cp ago. Possible cause(s): unknown. Associated signs and symptoms: Pertinent negatives: discharge, drainage, fever. Historical: - Allergies: 14:41 Bactrim; aa5 - Home Meds: 16:33 Bupropion Oral [Active]; escitalopram oxalate Oral [Active]; mg2 - PMHx: 14:41 Anxiety; aa5 - PSHx: 14:41 None; aa5 - Immunization history:: Flu vaccine is not up to date. - Social history:: Smoking status: Patient uses tobacco products, smokes one-half pack cigarettes per day. - Ebola Screening: : No symptoms or risks identified at this time. ROS: 15:20 Eyes: Negative for injury, pain, redness, and discharge. cp 15:20 Constitutional: Negative for body aches, chills, fever, poor PO intake. 15:20 Cardiovascular: Negative for chest pain, palpitations. 15:20 Respiratory: Negative for cough, shortness of breath, wheezing. 15:20 Abdomen/GI: Negative for abdominal pain, nausea, vomiting, and diarrhea. 15:20 Skin: Positive for abscess, of the scalp. 15:20 Neuro: Negative for altered mental status, headache, weakness. 15:20 All other systems are negative. Exam: 15:21 Constitutional: The patient appears in no acute distress, alert, awake, non-toxic, well cp developed, well nourished. 15:21 Head/face: Noted is swelling, that is mild, of the left base of the skull and right base of the skull, tenderness, that is moderate, of the left base of the skull and right base of the skull. 15:21 Eyes: Periorbital structures: appear normal, Conjunctiva: normal, no exudate, no injection, Lids and lashes: appear normal, bilaterally. 15:21 ENT: External ear(s): are unremarkable, Nose: is normal, Mouth: is normal. 15:21 Neck: ROM/movement: is normal, is supple, without pain, no range of motions limitations, no nuchal rigidity. 15:21 Chest/axilla: Inspection: normal. 15:21 Cardiovascular: Rate: normal. 15:21 Respiratory: the patient does not display signs of respiratory distress, Respirations: normal, no use of accessory muscles, no retractions, no splinting, no tachypnea. 15:21 Abdomen/GI: Exam negative for discomfort, distension, guarding, Inspection: abdomen appears normal. Vital Signs: 14:41 BP 134 / 96; Pulse 88; Resp 16 S; Temp 97.3(TE); Pulse Ox 99% on R/A; Weight 104.33 kg aa5 (R); Height 5 ft. 8 in. (172.72 cm) (R); Pain 7/10; 15:12 BP 129 / 91; Pulse 89; Resp 18; Pulse Ox 100% on R/A; Pain 8/10; mg2 16:32 BP 120 / 78; Pulse 80; Resp 18; Pulse Ox 100% on R/A; Pain 0/10; mg2 14:41 Body Mass Index 34.97 (104.33 kg, 172.72 cm) aa5 MDM: 15:11 Patient medically screened. cp 16:15 Data reviewed: vital signs, nurses notes, and as a result, I will discharge patient. cp 16:15 Differential diagnosis: abscess, cellulitis, insect bite, folliculitis. Counseling: I cp had a detailed discussion with the patient and/or guardian regarding: the historical points, exam findings, and any diagnostic results supporting the discharge/admit diagnosis, the need for outpatient follow up, a family practitioner, to return to the emergency department if symptoms worsen or persist or if there are any questions or concerns that arise at home. Response to treatment: the patient's symptoms have mildly improved after treatment, and as a result, I will discharge patient. 05/12 15:14 Order name: I\T\D Setup; Complete Time: 16:20 cp Administered Medications: 16:20 Drug: Lidocaine (1 %) 5 mg Route: Infiltration; mg2 16:30 Follow up: Response: No adverse reaction; Pain is decreased mg2 16:20 Drug: Marcaine (0.5 %) 5 ml Volume: 10 ml; Route: Infiltration; mg2 16:30 Follow up: Response: No adverse reaction; Pain is decreased mg2 Disposition: 16:45 Chart complete. cp 18:04 Co-signature as Attending Physician, Nithya Simons MD. ma2 Disposition: 05/12/18 16:16 Discharged to Home. Impression: Cellulitis of head [any part, except face]. - Condition is Stable. - Discharge Instructions: Cellulitis, Adult. - Prescriptions for Clindamycin HCl 300 mg Oral Capsule - take 1 capsule by ORAL route every 6 hours for 10 days; 40 capsule. - Medication Reconciliation Form, Thank You Letter, Antibiotic Education, Prescription Opioid Use form. - Follow up: Private Physician; When: 2 - 3 days; Reason: Recheck today's complaints. - Problem is new. - Symptoms have improved. Signatures: Carmen Nicholson RN RN aa5 Zackary Bowman PA PA cp Nithya Simons MD MD ma2 Adam Craig RN RN mg2 Corrections: (The following items were deleted from the chart) 16:34 16:16 05/12/2018 16:16 Discharged to Home. Impression: Cellulitis of head [any part, mg2 except face]. Condition is Stable. Forms are Medication Reconciliation Form, Thank You Letter, Antibiotic Education, Prescription Opioid Use. Follow up: Private Physician; When: 2 - 3 days; Reason: Recheck today's complaints. Problem is new. Symptoms have improved. cp
== END 2018-05-12 16:34 | disposition home or self-care (01) ==
LOC: ER 14:23
PROC: 0J900ZZ Drainage of Scalp Subcutaneous Tissue and Fascia, Open Approach (ICD-10-PCS; principal; 2018-05-12)
DX: L03.811 Cellulitis of head [any part, except face] (principal); F41.9 Anxiety disorder, unspecified; F17.210 Nicotine dependence, cigarettes, uncomplicated; Z88.1 Allergy status to other antibiotic agents
CPT/HCPCS: 99283

== ENCOUNTER 2018-08-05 00:29 | Emergency (ER) | payer BC ==
--- OUTSIDE RECORDS SUMMARY | 2018-08-05 00:30 | XMS REPORT ---
:1985 Author Organization e[employer] Care Team Providers Name Role Phone Higinio Nielsen Provider Role Unavailable Allergies, Adverse Reactions, Alerts Substance Reaction Event Type Bactrim Info Not Available Drug Allergy Problems Problem Type Condition Code Onset Dates Condition Status Assessment Irritability and anger R45.4 Active Assessment Allergic rhinitis, unspecified J30.9 Active seasonality, unspecified trigger Assessment Depression with anxiety F41.8 Active Assessment Erectile dysfunction, unspecified N52.9 Active erectile dysfunction type Assessment Tobacco use disorder F17.200 Active Assessment Psoriasis L40.9 Active Assessment Refused influenza vaccine Z28.21 Active Problem Depression with anxiety F41.8 Active Problem Tobacco use disorder F17.200 Active Problem Psoriasis L40.9 Active Assessment Well adult on routine health check Z00.00 Active Problem Erectile dysfunction, unspecified N52.9 Active erectile dysfunction type Problem Allergic rhinitis, unspecified J30.9 Active seasonality, unspecified trigger Medications Medication Code Code Instructions Start End Status Dosage System Date Date Triamcinolone [facility] 95000823533 0.1 % June Active 1 application Acetonide Externally 08, to affected Twice a day 2018 area BuPROPion HCl ER ND 13308216078 300 MG Orally Active 1 tablet in (XL) Once a day the morning Sildenafil ND 00101193468 100 MG Orally June Active 1 tablet as Citrate Once a day , 08, needed 2018 2019 Montelukast ND 28505392968 10 MG Orally June Active 1 tablet Sodium Once a day 2018 Escitalopram ND 97802651302 10 MG Orally Active 1 tablet Oxalate Once a day Results No Known Results Summary Purpose eClinicalWorks Submission
--- OUTSIDE RECORDS SUMMARY | 2018-08-05 00:30 | XMS REPORT ---
:1985 Author Organization [employer] Care Team Providers Name Role Phone Higinio Nielsen Provider Role Unavailable Allergies No Known Allergies Problems Problem Type Condition Code Onset Dates Condition Status Problem Depression with anxiety F41.8 Active Problem Tobacco use disorder F17.200 Active Problem Psoriasis L40.9 Active Problem Erectile dysfunction, unspecified N52.9 Active erectile dysfunction type Problem Allergic rhinitis, unspecified J30.9 Active seasonality, unspecified trigger Medications No Known Medications Results No Known Results Summary Purpose eClinicalWorks Submission
[2018-08-05 02:46] LABS: Absolute Lymphocytes (CBC) 2.4 K/uL (0.7-4.9); Absolute Monocytes 0.8 K/uL (0.1-1.3); Absolute Neutrophil 7.5 K/uL (1.8-8.0); Basophils % 0.8 % (0-1.3); Eosinophils % 2.9 % (0-4.4); Hematocrit 44.4 % (39.6-49.0); Lymphocytes % 21.7 % (15.3-44.8); Monocytes % 7.2 % (3.3-12.3); RBC Red Blood Cell Count 5.24 M/uL (4.33-5.43)
[2018-08-05 02:59] LABS: Potassium 3.9 mmol/L (3.5-5.1)
[2018-08-05] MEDS ORDERED: LIDOCAINE 1% 20 ML MDV ONE (05:05)
--- NOTE | 2018-08-05 05:20 | ER ---
Nurse's Notes [facility] Name: Temo Chow Age: 32 yrs Sex: Male : 1985 Arrival Date: 08/05/2018 Time: 00:30 Bed 24 Private MD: Higinio Nielsen Diagnosis: Small abscess top of head. Swelling left side face Presentation: 08/05 00:50 Presenting complaint: Patient states: I have a boil of something on top of my head and la1 a rash on my face. Transition of care: patient was not received from another setting of care. Onset of symptoms was August 05, 2018. Risk Assessment: Do you want to hurt yourself or someone else? Patient reports no desire to harm self or others. Initial Sepsis Screen: Does the patient meet any 2 criteria? No. Patient's initial sepsis screen is negative. Does the patient have a suspected source of infection? No. Patient's initial sepsis screen is negative. Care prior to arrival: None. 00:50 Method Of Arrival: Ambulatory la1 00:50 Acuity: CAL 4 la1 Historical: - Allergies: 00:50 Bactrim; la1 - Home Meds: 01:20 Bupropion Oral [Active]; escitalopram oxalate Oral [Active]; mg2 - PMHx: 00:50 Anxiety; la1 - Immunization history:: Adult Immunizations up to date. - Social history:: Smoking status: Patient uses tobacco products, smokes one-half pack cigarettes per day. - Ebola Screening: : No symptoms or risks identified at this time. Screenin:19 Abuse screen: Denies threats or abuse. Denies injuries from another. Nutritional mg2 screening: No deficits noted. Tuberculosis screening: No symptoms or risk factors identified. Fall Risk None identified. Assessment: 00:51 Respiratory: No deficits noted. Airway is patent Trachea midline Respiratory effort is la1 even, unlabored, Respiratory pattern is regular, symmetrical. 01:53 General: Appears in no apparent distress. comfortable, Behavior is calm, cooperative. mg2 Pain: Complains of pain in face and scalp Pain does not radiate. Pain currently is 3 out of 10 on a pain scale. Quality of pain is described as aching, Pain began gradually, 1 day ago. Neuro: Level of Consciousness is awake, alert, obeys commands, Oriented to person, place, time, situation. Cardiovascular: Capillary refill < 3 seconds Patient's skin is warm and dry. GI: No signs and/or symptoms were reported involving the gastrointestinal system. : No signs and/or symptoms were reported regarding the genitourinary system. EENT: No deficits noted. Derm: Skin is intact, is healthy with good turgor, Skin is pink, warm \T\ dry. normal. Musculoskeletal: Circulation, motion, and sensation intact. Capillary refill < 3 seconds, Swelling present in face. Vital Signs: 00:50 BP 122 / 94; Pulse 82; Resp 16; Temp 98.4; Pulse Ox 98% on R/A; Weight 99.79 kg; Height la1 5 ft. 8 in. (172.72 cm); 01:55 BP 131 / 97; Pulse 70; Resp 18; Temp 98.4; Pulse Ox 100% on R/A; Pain 3/10; mg2 05:19 BP 140 / 109; Pulse 70; Resp 18; Pulse Ox 97% ; Pain 6/10; fu 00:50 Body Mass Index 33.45 (99.79 kg, 172.72 cm) la1 ED Course: 00:30 Patient arrived in ED. am2 00:31 Higinio Nielsen DO is Private Physician. am2 00:50 Arm band placed on left wrist. la1 00:51 Triage completed. la1 01:19 Adam Craig, RN is Primary Nurse. mg2 01:19 Patient has correct armband on for positive identification. Bed in low position. Pulse mg2 ox on. NIBP on. Door closed. Warm blanket given. 01:19 Patient did not have IV access during this emergency room visit. mg2 01:55 No provider procedures requiring assistance completed. mg2 02:11 Claude Campo MD is Attending Physician. pkl 02:43 Initial lab(s) drawn, by nc, sent to lab. mg2 03:16 Primary Nurse role handed off by Adam Craig, FLOR fu 03:16 Oleg Coon, FLOR is Primary Nurse. fu 03:[address] via wheelchair. fu 03:54 CT Facial Bones W/O Con In Process Unspecified. EDMS 04:50 Assist provider with I \T\ D: of an abscess on head Culture sent to lab. Wound packed. fu 4X4s, Dressing with triple antibiotics Patient tolerated well. 05:18 Higinio Nielsen DO is Referral Physician. pkl Administered Medications: 05:32 Drug: Clindamycin 300 mg Route: PO; fu 05:32 Drug: [place] (7.5 mg-325 mg) 1 tabs Route: PO; fu Outcome: 05:20 Discharge ordered by . pkl 05:43 Condition: improved fu 05:43 Discharge instructions given to patient, Instructed on discharge instructions, follow up and referral plans. Demonstrated understanding of instructions, medications, Prescriptions given X 2. 05:45 Patient left the ED. fu Signatures: Dispatcher [employer] EDMS Claude Campo MD MD pkl Fan Arredondo RN RN la1 Cece Gonzales Felix, RN RN fu Gardose, Michele, RN RN mg2
--- NOTE | 2018-08-05 05:21 | EDPHYS ---
Physician Documentation [facility] Name: Temo Chow Age: 32 yrs Sex: Male : 1985 Arrival Date: 08/05/2018 Time: 00:30 Bed 24 Private MD: [facility] ED Physician Claude Campo HPI: 08/05 02:37 This 32 yrs old Male presents to ER via Ambulatory with complaints of Facial pkl Swelling. 02:37 The patient presents with an abscess of the top of head. Description: The affected area pkl is small, swollen. Onset: The symptoms/episode began/occurred 3 day(s) ago. Associated signs and symptoms: Pertinent positives: swelling, right side face. Historical: - Allergies: 00:50 Bactrim; la1 - Home Meds: 01:20 Bupropion Oral [Active]; escitalopram oxalate Oral [Active]; mg2 - PMHx: 00:50 Anxiety; la1 - Immunization history:: Adult Immunizations up to date. - Social history:: Smoking status: Patient uses tobacco products, smokes one-half pack cigarettes per day. - Ebola Screening: : No symptoms or risks identified at this time. ROS: 02:37 Eyes: Negative for injury, pain, redness, and discharge, ENT: Negative for injury, pkl pain, and discharge, Neck: Negative for injury, pain, and swelling, Cardiovascular: Negative for chest pain, palpitations, and edema, Respiratory: Negative for shortness of breath, cough, wheezing, and pleuritic chest pain, Abdomen/GI: Negative for abdominal pain, nausea, vomiting, diarrhea, and constipation, Back: Negative for injury and pain, : Negative for injury, bleeding, discharge, and swelling, MS/Extremity: Negative for injury and deformity. 02:37 Skin: Positive for abscess, of the top of head. 02:37 Neuro: Negative for altered mental status. Exam: 02:37 Eyes: Pupils equal round and reactive to light, extra-ocular motions intact. Lids and pkl lashes normal. Conjunctiva and sclera are non-icteric and not injected. Cornea within normal limits. Periorbital areas with no swelling, redness, or edema. 02:37 Head/face: Noted is small abscess top of head. mild swelling left side of face. 02:37 ENT: Exam is negative for acute changes. 02:37 Neck: Exam negative for acute changes. 02:37 Chest/axilla: Exam negative for acute changes. 02:37 Cardiovascular: Rate: normal, Rhythm: regular. 02:37 Respiratory: the patient does not display signs of respiratory distress, Respirations: normal, Breath sounds: are clear throughout. 02:37 Abdomen/GI: Bowel sounds: normal, Palpation: abdomen is soft and non-tender. 02:37 Back: Exam negative for acute changes. 02:37 : Exam negative for acute changes. 02:37 Musculoskeletal/extremity: Exam is negative for acute changes. 02:37 Skin: abscess, that is small, approximately 2 cm(s), of the top of head, with fluctuance, that is mild. 02:37 Neuro: Orientation: is normal, Mentation: is normal, Cranial nerves: grossly normal, Motor: is normal. Vital Signs: 00:50 BP 122 / 94; Pulse 82; Resp 16; Temp 98.4; Pulse Ox 98% on R/A; Weight 99.79 kg; Height la1 5 ft. 8 in. (172.72 cm); 01:55 BP 131 / 97; Pulse 70; Resp 18; Temp 98.4; Pulse Ox 100% on R/A; Pain 3/10; mg2 05:19 BP 140 / 109; Pulse 70; Resp 18; Pulse Ox 97% ; Pain 6/10; fu 00:50 Body Mass Index 33.45 (99.79 kg, 172.72 cm) la1 Procedures: 05:17 I \T\ D: Incision and drainage was performed for an abscess of the top of head Prepped pkl with Betadine, Anesthetized with 2 ml's 1% Lidocaine. Incised with #11 blade. Drained small amount purulent fluid. Dressing: sterile 4x4 gauze, the patient tolerated the procedure well. MDM: 02:11 Patient medically screened. pkl 05:17 Data reviewed: vital signs, nurses notes, lab test result(s), radiologic studies, CT pkl scan. 08/05 02:17 Order name: CBC with Diff; Complete Time: 04:44 pkl 08/05 02:17 Order name: Chem 7; Complete Time: 04:44 pkl 08/05 02:17 Order name: Sed Rate; Complete Time: 04:44 pkl 08/05 02:17 Order name: CT Facial Bones W/O Con pkl 08/05 05:24 Order name: Wound Culture fu Administered Medications: 05:32 Drug: Clindamycin 300 mg Route: PO; fu 05:32 Drug: [place] (7.5 mg-325 mg) 1 tabs Route: PO; fu Disposition: 08/05/18 05:20 Discharged to Home. Impression: Small abscess top of head. Swelling left side face. - Condition is Stable. - Prescriptions for Clindamycin HCl 300 mg Oral Capsule - take 1 capsule by ORAL route every 6 hours for 7 days; 28 capsule. Tylenol- Codeine #3 300-30 mg Oral Tablet - take 1 tablet by ORAL route every 8 hours As needed; 20 tablet. - Work release form, Medication Reconciliation Form, Thank You Letter, Antibiotic Education, Prescription Opioid Use form. - Follow up: Higinio Nielsen DO; When: 2 - 3 days; Reason: Re-evaluation by your physician. - Problem is new. - Symptoms have improved. Signatures: Dispatcher [employer] EDMS Claude Campo MD MD pkl Fan Arredondo RN RN la1 Oleg Coon RN RN fu Adam Craig, RN RN mg2 Corrections: (The following items were deleted from the chart) 05:45 05:20 08/05/2018 05:20 Discharged to Home. Impression: Small abscess top of head. fu Swelling left side face. Condition is Stable. Forms are Medication Reconciliation Form, Thank You Letter, Antibiotic Education, Prescription Opioid Use. Follow up: Higinio Nielsen; When: 2 - 3 days; Reason: Re-evaluation by your physician. Problem is new. Symptoms have improved. pkl
[2018-08-05] MEDS ORDERED: HYDROCODONE/APAP 7.5/325 MG TAB ONE (05:42)
[2018-08-05] MEDS ORDERED: CLINDAMYCIN HCL 150 MG CAP ONE (05:45)
--- NOTE | 2018-08-07 11:07 | RAD REPORT ---
EXAM DESCRIPTION: CT - Facial Bones W/ Mpr - 08/05/2018 3:54 am CLINICAL HISTORY: The patient is 32 years old and is Male; pain ans swelling left side fac e TECHNIQUE: Axial computed tomography images of the face without intravenous contrast. Sagittal and coronal reformatted images were created and reviewed. This CT exam was performed using one or more of the following dose reduction techniques: automated exposure control, adjustment of the mA and/o r kV according to patient size, and/or use of iterative reconstruction technique. COMPARISON: No relevant prior studies available. FINDINGS: BONES/JOINTS: The orbital floors and johnson are intact. The zygomatic arches and pteryg oid plates are intact. The visualized maxilla and mandible are intact. SOFT TISSUES: Unremarkable. ORBITS: The globes, extraocular muscles, and optic nerve complexes are within normal limits. SINUSES: The visualized paranasal sinuses are clear. No air-fluid levels. NASAL CAVITY/SEPTUM: The nasal bones are intact. IMPRESSION: No acute findings. Electronically signed by: Taylor Farah MD 08/05/2018 4:07 AM CDT Due to temporary technical issues with the PACS/Fluency reporting system, reports are being signed by the in house radiologist as a courtesy to ensure prompt reporting. The interpreting radiologist is f ully responsible for the content of the report.
== END 2018-08-05 05:45 | disposition home or self-care (01) ==
LOC: ER 00:29
PROC: 0J900ZZ Drainage of Scalp Subcutaneous Tissue and Fascia, Open Approach (ICD-10-PCS; principal; 2018-08-05)
DX: L02.811 Cutaneous abscess of head [any part, except face] (principal); F17.210 Nicotine dependence, cigarettes, uncomplicated
CPT/HCPCS: 36415; 70486; 76377; 80048; 85025; 85652; 87070; 87077; 87186; 87205; 99284